=== PATIENT | female | born 1970 | race Caucasian/White ===

== ENCOUNTER → 2023-07-19 19:55 | Outpatient (REF) | payer BC, SELFPAY | LOC: MRI 3T 19:55 | PROVIDERS: ATTENDING PHYSICIAN Physician Assistant Medical; FAMILY PHYSICIAN Family Medicine | DX: R41.3 Other amnesia (principal) | CPT/HCPCS: 70553; A9575 ==

== ENCOUNTER → 2024-02-02 08:57 | Outpatient (REF) | payer BC, SELFPAY | LOC: WDC 08:57 | PROVIDERS: ATTENDING PHYSICIAN Physician Assistant Medical | DX: R92.8 Other abnormal and inconclusive findings on diagnostic imaging of breast (principal) | CPT/HCPCS: 77066 ==